=== PATIENT | male | born 1965 | race African-American/Black ===

== ENCOUNTER 2017-12-17 08:26 | Day surgery (SDC) | payer BC ==
[~2017-12-17] VITALS: Ht 180.3 cm; Wt 128.1 kg
[2017-12-17 08:55] VITALS: BP 134/88; PULSE 74; TEMP 97.6
[2017-12-17] MEDS ORDERED: GLUCOPHAGE500 MG/TAB PO (08:57)
[2017-12-17] MEDS ORDERED: LEVEMIR FLEX100 U/ML SQ (08:58)
[2017-12-17 10:56] VITALS: BP 142/88; PULSE 82; TEMP 97.3
[2017-12-17 11:00] VITALS: BP 146/92; PULSE 84
[2017-12-17 11:15] VITALS: BP 138/90; PULSE 68
[2017-12-17 11:30] VITALS: BP 136/81; PULSE 68
== END 2017-12-17 12:00 | disposition home or self-care (01) ==
LOC: SDCO 08:26
DX: Z12.11 Encounter for screening for malignant neoplasm of colon (principal); D12.2 Benign neoplasm of ascending colon; K57.30 Diverticulosis of large intestine without perforation or abscess without bleeding; E11.9 Type 2 diabetes mellitus without complications; G47.30 Sleep apnea, unspecified; E66.9 Obesity, unspecified; Z79.4 Long term (current) use of insulin
CPT/HCPCS: OP; J2250; J3010; J7030